=== PATIENT | male | born 1935 | race Caucasian/White ===

== ENCOUNTER 2018-06-27 19:34 | Inpatient (IN) | payer MEDICARE ==
[~2018-06-27] VITALS: Ht 167.6 cm; Wt 97.9 kg
[2018-06-27 19:39] VITALS: BP 122/68
[2018-06-27] MEDS ORDERED: FISH OIL 1,001000 M2 PO (19:46)
[2018-06-27] MEDS ORDERED: GLUCOPHAGE XR750 MG PO (19:47)
[2018-06-27] MEDS ORDERED: DIOVAN320 MG PO (19:47)
[2018-06-27] MEDS ORDERED: AMARYL4 MG PO (19:47)
[2018-06-27] MEDS ORDERED: PROSCAR 5MG TABL5 MG PO (19:48)
[2018-06-27] MEDS ORDERED: INVOKANA100 MG PO (19:48)
[2018-06-27] MEDS ORDERED: ASPIR 8181 MG PO (19:48)
[2018-06-27 20:05] LABS: HEMATOCRIT 45.5 % (42.0-52.0); HEMOGLOBIN 15.5 gm/dL (14.0-18.0); MCH 30.6 pg (26.0-34.0); MCHC 34.1 g/dL (28.0-37.0); MCV 89.6 fL (80.0-100.0); MPV 7.8 fl. (7.2-11.1); NUCLEATED RBCS 0 /100WBC; PLATELET COUNT* 234 thou/uL (150-400); RBC 5.08 mil/uL (4.50-6.00); RDW-CV 14.1 % (10.5-14.5); WBC 17.5 thou/uL (4.0-11.0)
[2018-06-27 20:06] LABS: ANION GAP 13 mmol/L (7-16); BUN 18 mg/dL (7-18); CALCIUM 9.7 mg/dL (8.5-10.1); CHLORIDE 95 mmol/L (98-107); CO2 28 mmol/L (21-32); CREATININE 1.4 mg/dL (0.6-1.3); GLUCOSE 195 mg/dL (70-99); POTASSIUM 3.8 mmol/L (3.5-5.1); SODIUM 136 mmol/L (136-145)
[2018-06-27 20:17] LABS: ALBUMIN 3.7 g/dL (3.4-5.0); ALKALINE PHOSPHATASE 68 U/L (46-116); LIPASE 137 U/L (73-393); NT-PRO BRAIN NAT PEPTIDE 327 pg/mL (<300); SGOT 18 U/L (15-37); SGPT 30 U/L (30-65); TOTAL BILIRUBIN 1.2 mg/dL (<0.1-1.0); TROPONIN-I LEVEL <0.06 ng/mL (<0.06)
[2018-06-27 20:28] LABS: ABSOLUTE LYMPHOCYTES 2.1 thou/uL (0.8-5.3); ABSOLUTE MONOCYTES 0.7 thou/uL (0.0-1.2); ABSOLUTE NEUTROPHILS 14.7 thou/uL (1.6-8.1); PLATELET ESTIMATE ADEQUATE
[2018-06-27 21:19] LABS: INFLUENZA A ANTIGEN None Detected (None Detect); INFLUENZA B ANTIGEN None Detected (None Detect)
[2018-06-27 22:21] LABS: URINE BILIRUBIN NEGATIVE (Negative); URINE BLOOD NEGATIVE (Negative); URINE CLARITY CLEAR; URINE COLOR YELLOW; URINE GLUCOSE-RANDOM 3+ (Negative); URINE KETONES 2+ (Negative); URINE LEUKOCYTES-REFLEX NEGATIVE (Negative); URINE NITRITE-REFLEX NEGATIVE (Negative); URINE PROTEIN TRACE (Negative); URINE SPECIFIC GRAVITY <= 1.005 (1.005-1.030); URINE UROBILINOGEN 0.2 E.U./dl (0.2-1.0)
[2018-06-27 22:56] VITALS: BP 146/66
[2018-06-27 23:27] VITALS: BP 147/50
[2018-06-28 03:53] LABS: ABSOLUTE LYMPHOCYTES 1.3 thou/uL (0.8-5.3); ABSOLUTE MONOCYTES 1.6 thou/uL (0.0-1.2); ABSOLUTE NEUTROPHILS 11.7 thou/uL (1.6-8.1); BASOPHILS 0.2 %; HEMATOCRIT 40.3 % (42.0-52.0); LYMPHOCYTES 8.8 %; MCH 31.2 pg (26.0-34.0); MCHC 34.7 g/dL (28.0-37.0); MCV 89.9 fL (80.0-100.0); MONOCYTES 10.8 %; MPV 7.6 fl. (7.2-11.1); NUCLEATED RBCS 0 /100WBC; PLATELET COUNT* 187 thou/uL (150-400); POLYS 80.2 %; RBC 4.49 mil/uL (4.50-6.00); WBC 14.6 thou/uL (4.0-11.0)
[2018-06-28 04:16] LABS: CALCIUM 8.9 mg/dL (8.5-10.1); CREATININE 1.1 mg/dL (0.6-1.3); DIRECT BILIRUBIN 0.3 mg/dL (<0.1-0.3); POTASSIUM 3.4 mmol/L (3.5-5.1); TOTAL BILIRUBIN 1.2 mg/dL (<0.1-1.0); TOTAL PROTEIN 6.8 g/dL (6.4-8.2)
--- NOTE | 2018-06-28 05:30 | NUR ---
PATIENT ARRIVED TO UNIT AT APPROX 2300. ALERT AND ORIENTED X4. SOME CONFUSION OBSERVED DURING ADMISSION QUESTIONS. PATEINTS SON ANSWERED ADMISSION QUESTIONS AND REVIEWED MEDICATIONS WITH NURSE. NO COMPLAINTS OF PAIN, NAUSEA, OR SOA. VSS ON ROOM AIR. FLUIDS INFUSED ORDERED. PATIENT RESTING COMFORTABLY IN BED THROUGHOUT THE NIGHT. FALL PRECAUTIONS IN PLACE. CALL LIGHT WITHIN REACH. NURSING WILL CONTINUE TO MONITOR.
[2018-06-28 08:15] VITALS: BP 132/64
--- NOTE | 2018-06-28 12:31 | EKG ---
[place] [address] ELECTROCARDIOGRAM REPORT Name: NIKKI DUNHAM Room: [address] ADM IN M.R.#: [id number] Admission: 06/27/18 Attend Phys: Lacy Purvis Discharge: Date of : 31 Report #: [id number] THIS REPORT FOR: //name// [facility] ED Test Date: 2018-06-27 Test Time: 19:50:16 Pat Name: NIKKI DUNHAM Department: Room: [facility] Gender: Shank Archer: Joe DELAROSA : 1935 Requested By: Dandre Moore Order Number: [id number] MD: Freeman Marina Measurements Intervals [place] Rate: 106 P: 31 [place]: 158 QRS: -29 QRSD: 102 T: 28 QT: 332 QTc: 441 Interpretive Statements Sinus tachycardia Inferior infarct, old Anterior infarct, old, possible Lateral leads are also involved No previous ECG available for comparison Electronically Signed On 06-28-2018 12:31:09 WHITEWASHER by Freeman Marina [email or web address] <ELECTRONICALLY SIGNED> By: Freeman Marina MD, FACC 06/28/18 1231 1950 1950 Freeman Marina MD, FACC /EPI
[2018-06-28 16:05] VITALS: BP 152/73
--- NOTE | 2018-06-28 16:38 | NUR ---
PATIENT REMAINS ALERT AND ORIENTED. DENIES PAIN. TOLERATING LIQUIDS. UP WITH ASSIST OF 1, AND GAITBELT. VOIDING PER URINAL OR TOILET. ALERT AND ORIENTED X3 BUT FORGETFUL THIS EVENING. BED/CHAIR ALARM IN USE. SON VISISTED THIS AM. IVF INFUSING ORDERED. CALL LIGHT WITHIN REACH. WILL CONTINUE TO MONITOR.
[2018-06-28 20:10] VITALS: BP 145/67
[2018-06-29 04:23] LABS: ABSOLUTE EOSINOPHILS 0.1 thou/uL (0.0-0.7); ABSOLUTE LYMPHOCYTES 1.6 thou/uL (0.8-5.3); ABSOLUTE MONOCYTES 1.3 thou/uL (0.0-1.2); BASOPHILS 0.3 %; EOSINOPHILS 0.5 %; HEMATOCRIT 36.9 % (42.0-52.0); HEMOGLOBIN 12.7 gm/dL (14.0-18.0); LYMPHOCYTES 13.3 %; MCH 31.3 pg (26.0-34.0); MCHC 34.4 g/dL (28.0-37.0); MCV 90.9 fL (80.0-100.0); MONOCYTES 10.8 %; MPV 7.6 fl. (7.2-11.1); NUCLEATED RBCS 0 /100WBC; PLATELET COUNT* 156 thou/uL (150-400); POLYS 75.1 %; RBC 4.06 mil/uL (4.50-6.00); RDW-CV 14.3 % (10.5-14.5); WBC 11.9 thou/uL (4.0-11.0)
[2018-06-29 04:43] LABS: ALBUMIN 2.5 g/dL (3.4-5.0); CALCIUM 8.3 mg/dL (8.5-10.1); CREATININE 1.1 mg/dL (0.6-1.3); POTASSIUM 3.9 mmol/L (3.5-5.1); TOTAL BILIRUBIN 0.8 mg/dL (<0.1-1.0); TOTAL PROTEIN 6.1 g/dL (6.4-8.2)
--- NOTE | 2018-06-29 05:06 | NUR ---
ASSUMED CARE OF PATIENT AT APPROX 1930. ALERT AND ORIENTED BUT SOMETIMES FORGETFUL. ASSESSMENT COMPLETED AND CHARTED. VSS ON ROOM AIR. NO COMPLAINTS OF PAIN, NAUSEA, OR SOA. UP WITH SBA TO THE BATHROOM. OBSERVED SLEEPING COMFORTABLY ON BED UPON HOURLY ROUNDS. CALL LIGHT WITHIN REACH AND USES APPROPRIATELY. FALL PRECAUTIONS IN PLACER. NURSING WILL CONTINUE TO MONITOR.
[2018-06-29 08:08] VITALS: BP 136/69
--- NOTE | 2018-06-29 15:33 | NUR ---
SPOKE TO THE PATIENT AND HIS SON TO DISCUSS HIS HOME SITUATION, DISCHARGE PLANNING AND TO INFORM OF THE ROLE OF CM. PATIENT RESIDES AT HOME WITH HIS SON IN THE BASEMENT/LOWER LEVEL OF THE HOME. IT IS SETUP LIKE AN APARTMENT AND EVERYTHING HE NEEDS IS THERE. PATIENT'S SON ALSO ASSIST THE PATIENT WITH PREPARING MEALS (USUALLY DINNER), AND HE USUSALLY PREPARES HIS OWN BREAKFAST AND LUNCH. PATIENT'S SON IS SUPPORTIVE AND INVOLVED IN HIS POC AND HE INFORMS THAT HE PLANS TO TAKE A FEW DAYS OFF FROM WORK TO ASSIST HIS FATHER AT D/C. PATIENT USES 0 DME, BUT HIS SON HAD RECENTLY PURCHASED HIM A WALKER TO USE AT HOME IF NEEDED. PATIENT HAS NO HX OF HH OR SNF, AND PLANS TO RETURN HOME AT D/C. PATIENT'S SON DOES NOT ANTICIPATE ANY DISCHARE PLANNING NEEDS. CM WILL REMAIN AVAILABLE TO ASSIST AND FOLLOW NEEDED.
--- NOTE | 2018-06-29 16:22 | NUR ---
PATIENT REMAINS ALERT AND ORIENTED X3. FORGETFUL AT TIMES. DENIES NEED FOR PAIN OR NAUSEA MEDS. STATES HIS STOMACH BOTHERS HIM SOMETIMES. TOLERATING CLEAR LIQUIDS. WILL BE NPO AFTER MIDNIGHT FOR CHOLECYSTECTOMY TOMORROW. SON UPDATED ON SURGERY TIME. IVF INFUSING ORDERED. UP WITH STAND BY ASSIST. BED/CHAIR ALARM IN USE. VOIDING PER TOILET. BM 06/28/18. CALL LIGHT WITHIN REACH. WILL CONTINUE TO MONITOR.
[2018-06-29 16:32] VITALS: BP 133/58
[2018-06-29 19:20] VITALS: BP 150/68
--- NOTE | 2018-06-30 06:19 | NUR ---
PT HAS SLEPT ON AND OFF THIS SHIFT. PT HAS HAD NO C/O NAUSEA OR PAIN T/O THIS SHIFT. NO NEW CONCERNS AT THIS TIME.
[2018-06-30 08:36] VITALS: BP 146/62
[2018-06-30 09:28] VITALS: BP 150/68
[2018-06-30 14:15] VITALS: BP 155/64
--- NOTE | 2018-06-30 14:31 | NUR ---
PATIENT RETURNED FROM SURGERY AT THIS TIME. ALERT AND ORIENTED. JUST RECEIVED PAIN MEDS IN PACU. O2 2L. CAPNO IN PLACE. LAP SITES C/D/I WITH TEGADERM AND GAUZE IN PLACE. HOLDEN RUQ. SANGUINEOUS DRAINAGE. WATER PROVIDED. IVF AND IV ABX INFUSING ORDERED. SCD'S IN PLACE. BED ALARM SET. SON AT BEDSIDE-WILL BRING CPAP TONIGHT. CALL LIGHT WITHIN REACH. WILL CONTINUE TO MONITOR.
--- NOTE | 2018-06-30 14:53 | OP ---
[address] [address] OPERATIVE REPORT Name: NIKKI DUNHAM Room: [address] IN M.R.#: [id number] Admission: 06/27/18 Attend Phys: Lacy Purvis Discharge: Date of : 31 Report #: [id number] THIS REPORT FOR: //name// CC: Eileen Arteaga DO [facility] physician/PCP Neville Calvo PREOPERATIVE DIAGNOSES: Acute cholecystitis, cholelithiasis. POSTOPERATIVE DIAGNOSES: Acute gangrenous cholecystitis, cholelithiasis. SURGEON: Eileen Arteaga DO. CO-SURGEON: Jama Goodrich DO, PGY-2. DISTRIBUTION DRIVER: Maximo PGY-1. OPERATION PERFORMED: Laparoscopic cholecystectomy. ANESTHESIA: General and local. ESTIMATED BLOOD LOSS: 100 mL. SPECIMENS REMOVED: Gallbladder. DRAINS: A 15-Vietnamese HOLDEN drain. COMPLICATIONS: None. HISTORY OF PRESENT ILLNESS: The patient is a pleasant 82-year-old male who presented with right upper quadrant abdominal pain. Ultrasound did reveal evidence of cholecystitis with cholelithiasis. It was discussed that laparoscopic cholecystectomy would be treatment of choice. Risks and complications were discussed include bleeding, infection, injury to surrounding structures, possible open procedure, possible drain placement and risk of anesthesia. He acknowledged understanding and agreed to proceed with surgery. DESCRIPTION OF PROCEDURE: After consent was obtained, the patient was taken to the operating room and placed in supine position. SCDs applied to bilateral lower extremities. Safety belt placed across the patient's waist. Two grams of Ancef given for surgical prophylaxis. General anesthesia was administered without any complication. The patient was intubated and then prepped and draped in a standard sterile fashion. Timeout was performed to confirm the patient and procedure. An 11 blade scalpel was used to make a vertical incision just above the umbilicus. Electrocautery was used for hemostasis. S retractors used to dissect down to the level of the fascia. Fascia was grasped between 2 Kochers and elevated, scored with electrocautery and hemostat [place] [id number] OPERATIVE REPORT Name: NIKKI DUNHAM Room: [address] IN [facility].#: [id number] Admission: 06/27/18 Attend Phys: Lacy Purvis Discharge: Date of : 31 Report #: [id number] peritoneum. Finger sweep was performed to ensure no intra-abdominal adhesions. Two stitches of 0 Vicryl were placed on either side of the fascia. A 10 mm Jorge trocar was inserted in the abdomen and abdomen was insufflated. Camera was inserted and intra-abdominal contents were inspected. The omentum and colon could be seen draped over the liver. A second 11 mm trocar was placed in the subxiphoid region under direct visualization. Two more trocars were placed in the right upper quadrant, these two were 5 mm trocars, under direct visualization. The omentum and transverse colon were pulled down caudad. The gallbladder could be seen under the edge of the liver. There was evidence of acute cholecystitis. There was a significant amount of omentum adhered to the gallbladder. This was sucked away with blunt dissection and electrocautery. Once the gallbladder was cleared of all adhesions, attention was turned to dissecting all the ducts using suction christmas tree farm manager. A blunt dissection was used to try to isolate the cystic duct. There was a structure medial and lateral to the cystic duct, it was unsure which one was the artery. These were both dissected free using [place] dissector and the duct was isolated secondary to being a gangrenous state of the gallbladder. The cystic duct did tear; however, the both proximal and distal ends were easily isolated and clipped. The two structures lateral and medial to the cystic duct were both clipped and cut. There was no evidence of bleeding from these structures. Attention was then turned to removing the gallbladder from the edge of the liver. Electrocautery was used to dissect the gallbladder off. Once it was freed from the liver bed, it was placed in an EndoCatch bag. Of note, the hole was made into the gallbladder and there was some spillage of stones. These stones were removed from the abdomen as best as possible and the gallbladder fossa was irrigated and suctioned of all fluid. Surgicel was placed onto the liver bed to ensure hemostasis. All excess stones and the gallbladder were placed in laparoscopic EndoCatch bag. Trocars were removed under direct visualization. Once hemostasis was ensured, insufflation was let down. The gallbladder and its contents were then removed from the supraumbilical port site. The fascia was closed with one stitch of 0 Vicryl in a [id number] fashion. All skin incisions were closed with 4-0 Monocryl. All counts were correct at the end of the case. The patient was awoken from general anesthesia and transferred to PACU in stable condition. Of note, a 15-Vietnamese HOLDEN drain was placed in the right upper quadrant just under the bed of the liver secondary to the gangrenous state of the gallbladder. <ELECTRONICALLY SIGNED> By: Jama Goodrich DO 06/30/18 1453 1246 1310DO andres Haynes
--- NOTE | 2018-06-30 15:07 | EKG ---
[place] [address] ELECTROCARDIOGRAM REPORT Name: NIKKI DUNHAM Room: [address] ADM IN M.R.#: [id number] Admission: 06/27/18 Attend Phys: Lacy Purvis Discharge: Date of : 31 Report #: [id number] THIS REPORT FOR: //name// [facility] Test Date: 2018-06-30 Test Time: 08:29:32 Pat Name: NIKKI DUNHAM Department: Room: [address] Gender: M Engine Buildup Mechanic: GARRETT RODRIGUEZ : 1935 Requested By: Ariana Otero Order Number: [id number] Colin MD: Abdoulaye Hernandez Measurements Intervals [place] Rate: 68 P: 49 [place]: 165 QRS: 4 QRSD: 101 T: 36 QT: 403 QTc: 429 Interpretive Statements Sinus rhythm Inferior infarct, old Compared to ECG 06/27/2018 19:50:16 Sinus tachycardia no longer present Myocardial infarct finding still present Electronically Signed On 06-30-2018 15:07:40 JUNIOR RECRUITER by Abdoulaye Hernandez [email or web address] <ELECTRONICALLY SIGNED> By: Abdoulaye Hernandez MD, [facility] 06/30/18 1507 0829 0829 Abdoulaye Hernandez MD, [facility] /EPI
[2018-06-30 15:45] VITALS: BP 144/76
--- NOTE | 2018-06-30 16:13 | NUR ---
PATIENT SLEEPING THIS AFTERNOON. TOLERATED SMALL AMOUNT OF LIQUIDS. ZOSYN STARTED. SCD'S IN PLACE. DRESSINGS C/D/I. BED ALARM SET. CALL LIGHT WITHIN REACH. WILL CONTINUE TO MONITOR.
--- NOTE | 2018-06-30 17:20 | NUR ---
PATIENT TOLERATED CLEAR LIQUIDS. REQUESTED CHICKEN NOODLE SOUP AND PUDDING-TOLERATED WELL. HYDROCODONE FOR PAIN.
[2018-06-30 20:00] VITALS: BP 119/59
[2018-07-01 00:32] VITALS: BP 135/93
[2018-07-01 04:29] VITALS: BP 154/78
--- NOTE | 2018-07-01 05:12 | NUR ---
ASSUMED CARE OF PT AT 1900 PT ALERT AND ORIENTED X4 VS AND ASSESSMENT STABLE. LAP SITES CDI, HOLDEN CARISSA HAD A SM AMOUNT OF SEROSANGINOUS DRAINAGE. PT HAD PAIN MEDS ONCE THEN SLEPT THROUGH THE NIGHT. WILL CONTINUE PLAN OF CARE.
[2018-07-01 07:45] VITALS: BP 144/68
[2018-07-01 08:25] LABS: HEMATOCRIT 37.8 % (42.0-52.0); HEMOGLOBIN 12.8 gm/dL (14.0-18.0); MCH 31.4 pg (26.0-34.0); MCHC 33.8 g/dL (28.0-37.0); MCV 92.7 fL (80.0-100.0); MPV 7.4 fl. (7.2-11.1); RBC 4.08 mil/uL (4.50-6.00); RDW-CV 14.4 % (10.5-14.5)
[2018-07-01 08:34] LABS: CALCIUM 7.9 mg/dL (8.5-10.1); CREATININE 1.1 mg/dL (0.6-1.3)
--- NOTE | 2018-07-01 12:40 | NUR ---
ACADEMIC PHYSICIAN SPOKE TO THE PATIENT AND HIS SON TO DISCUSS DISCHARGE PLANNING NEEDS AND HH AT D/C. PATIENT'S SON INFORMS THAT HE WOULD LIKE HH WITH [facility]. D/C EDUCATIONAL TECHNICIAN INFORMED [facility] OF THE REFERRAL, AND POSSIBLE D/C TOMORROW. [facility] HAS ACCEPTED THE PATIENT. D/C EDUCATIONAL TECHNICIAN WILL FAX D/C ORDERS WHEN AVAILABLE. CM WILL REMAIN AVIALABLE TO ASSIST AND FOLLOW NEEDED.
--- NOTE | 2018-07-01 13:38 | 2DMMODE ---
[place] [address] 2 D/M-MODE ECHOCARDIOGRAM Name: NIKKI DUNHAM Room: [address] IN [facility]#: [id number] Admission: 06/27/18 Attend Phys: Neville Calvo Discharge: Date of : 31 Date of Service: 07/01/18 1338 Report #: [id number] THIS REPORT FOR: //name// APPROVED REPORT Study performed: 07/01/2018 11:38:03 EXAM: Comprehensive 2D, Doppler, and color-flow Echocardiogram Patient Location: In-Patient Room #: [facility] Status: routine BSA: 2.06 HR: 79 bpm BP: 144/68 mmHg Rhythm: NSR Other Information Study Quality: Good Indications Abnormal ECG 2D Dimensions IVSd: 9.71 (7-11mm) LVOT Diam: 20.05 (18-24mm) LVDd: 47.20 mm PWd: 8.72 (7-11mm) Ascending Ao: 30.43 (22-36mm) LVDs: 23.22 (25-40mm) Aortic Root: 31.95 mm Volumes Left Atrial Volume (Systole) LA ESV Index: 20.70 mL/m2 Aortic Valve AoV Peak Davon.: 1.52 m/s AO Peak Gr.: 9.26 mmHg LVOT Max P.46 mmHg AO Mean Gr.: 4.96 mmHg LVOT Mean P.93 mmHg LVOT Max V: 1.45 m/s AO V2 VTI: 26.54 cm LVOT Mean V: 0.91 m/s SCOTT (VTI): 3.31 cm2 LVOT V1 VTI: 27.82 cm Mitral Valve E/A Ratio: 0.70 MV Decel. Time: 329.44 ms MV E Max Davon.: 0.82 m/s MV PHT: 95[place]54 [place] [address] 2 D/M-MODE ECHOCARDIOGRAM Name: NIKKI DUNHAM Room: [address] IN [facility].#: [id number] Admission: 06/27/18 Attend Phys: Neville Calvo Discharge: Date of : 31 Date of Service: 07/01/18 1338 Report #: [id number] MVA (PHT): 2.30 cm2 TDI E/Lateral E': 7.45 E/Medial E': 7.45 Medial E' Davon.: 0.11 m/s Lateral E' Davon.: 0.11 m/s Pulmonary Valve PV Peak Davon.: 1.16 m/s PV Peak Gr.: 5.35 mmHg Tricuspid Valve RAP Estimate: 5.00 mmHg TR Peak Gr.: 59.92 mmHg RVSP: 64.00 mmHg PA Pressure: 64.00 mmHg Left Ventricle The left ventricle is normal size. There is normal LV segmental wall motion. There is normal left ventricular wall thickness. Left ventricular systolic function is normal. The left ventricular ejection fraction is within the normal range. LVEF is 60-65%. Grade I - abnormal relaxation pattern. Right Ventricle The right ventricle is normal size. The right ventricular systolic function is normal. Atria The left atrium size is normal. The right atrium size is normal. Aortic Valve The aortic valve is normal in structure. No aortic regurgitation is present. There is no aortic valvular stenosis. Mitral Valve The mitral valve is normal in structure. Mild mitral regurgitation. No evidence of mitral valve stenosis. Tricuspid Valve The tricuspid valve is normal in structure. Mild tricuspid regurgitation. Mod[place] [address] 2 D/M-MODE ECHOCARDIOGRAM Name: NIKKI DUNHAM Room: [address] IN [facility]#: [id number] Admission: 06/27/18 Attend Phys: Neville Calvo Discharge: Date of : 31 Date of Service: 07/01/18 1338 Report #: [id number] Pulmonic Valve The pulmonary valve is normal in structure. There is no pulmonic valvular regurgitation. Great Vessels The aortic root is normal in size. IVC is not visualized. Pericardium There is no pericardial effusion. <Conclusion> The left ventricle is normal size. There is normal left ventricular wall thickness. Left ventricular systolic function is normal. The left ventricular ejection fraction is within the normal range. LVEF is 60-65%. Grade I - abnormal relaxation pattern. The right ventricle is normal size. The left atrium size is normal. The aortic valve is normal in structure. The mitral valve is normal in structure. Mild mitral regurgitation. The tricuspid valve is normal in structure. Mild tricuspid regurgitation. Moderate pulmonary hypertension. There is no pericardial effusion. There is normal LV segmental wall motion. <ELECTRONICALLY SIGNED> By: Mateo Lentz MD, FACC 07/01/18 1338 1338 1338 Mateo Lentz MD, FACC /INF
[2018-07-01 15:48] VITALS: BP 147/57
--- NOTE | 2018-07-01 16:16 | NUR ---
PATIENT REMAINS ALERT AND ORIENTED. PAIN CONTROLLED. TOLERATING FULL LIQUIDS. ADVANCING DIET SLOWLY, NO BM, VERY LITTLE FLATUS TODAY. VOIDING LARGE AMOUNTS PER URINAL. AMBULATED X3 IN HALLWAY. RA SAT 96%. INCENTIVE SPIROMETER ORDERED. LAP SITES C/D/I. HOLDEN RIGHT QUADRANT-SANGUINEOUS DRAINAGE. SCD'S WHILE IN BED. UP TO CHAIR FOR MEALS.CPAP AT HS. PATIENT DID HAVE TEMP OF 101 THIS EVENING. NOTIFIED. CHEST XRAY, AND BLOOD CULTURES ORDERED. BED/CHAIR ALARM IN USE. CALL LIGHT WITHIN REACH. WILL CONTINUE TO MONITOR.
--- NOTE | 2018-07-01 16:54 | NUR ---
NOTIFIED GENERAL SURGERY OF TEMP 101. NO NEW ORDERS AT THIS TIME.
[2018-07-01 20:00] VITALS: BP 147/64
[2018-07-02 00:29] VITALS: BP 154/68
[2018-07-02 04:19] VITALS: BP 133/77
--- NOTE | 2018-07-02 04:59 | NUR ---
ASSUMED CARE OF PT AT 1900 PT ALERT AND ORIENTED X4 VS AND ASSESSMENT STABLE. PT WAS FEBRILE THE PREVIOUS SHIFT BUT AFEBRILE OVERNIGHT ENCOURAGED USE OF IS. PT DENIED PAIN AND DECLINED PAIN MEDS. PT SLEPT THROUGH THEN NIGHT. WILL CONTINUE PLAN OF CARE.
[2018-07-02 05:04] LABS: HEMATOCRIT 32.1 % (42.0-52.0); HEMOGLOBIN 11.1 gm/dL (14.0-18.0); MCH 31.2 pg (26.0-34.0); MCHC 34.4 g/dL (28.0-37.0); MCV 90.8 fL (80.0-100.0); MPV 6.5 fl. (7.2-11.1); RBC 3.54 mil/uL (4.50-6.00); RDW-CV 14.1 % (10.5-14.5); WBC 8.9 thou/uL (4.0-11.0)
[2018-07-02 05:14] LABS: CALCIUM 8.2 mg/dL (8.5-10.1); POTASSIUM 3.3 mmol/L (3.5-5.1)
[2018-07-02 08:30] VITALS: BP 123/55
[2018-07-02] MEDS ORDERED: COLACE 100 MG100 MG PO (12:19)
[2018-07-02] MEDS ORDERED: HYDROCODON-ACE1 EAC7 PO (12:19)
[2018-07-02 13:23] VITALS: BP 123/55
[2018-07-02 13:59] VITALS: BP 123/55
[2018-07-02 14:44] VITALS: BP 123/55
--- NOTE | 2018-07-02 14:45 | NUR ---
PT GIVEN DISCHARGE INFORMATION AND CARE NOTES. IV REMOVED EARLIER IN SHIFT BY PATIENT. PT BELONGINGS GATHERED. PT LEFT TO HOME WITH HOME HEALTH. PT HAD BOWEL MOVEMENT PRIOR TO LEAVING. TOLERATED REGULAR DIET. FALL RISK PRECAUTIONS IN PLACE. HOURLY ROUNDING COMPLETED. PT LEFT VIA WHEELCHAIR WITH NURSING STAFF TO CAR WITH SON.
--- NOTE | 2018-07-03 13:08 | PATH ---
[address] [address] PATHOLOGY RPT PROCEDURE Name: NIKKI DUNHAM Room: [address] IN M.R.#: [id number] Admission: 06/27/18 Date of : 31 Discharge: 07/02/18 Report #: [id number] Path Case #: [id number] [facility] Accession Number: [id number] . 01 Material submitted: . GALLBLADDER . 01 Clinical history: . Pre-op diagnosis: Cholecystitis Post-op diagnosis: Gangrenous cholecystitis, cholelithiasis . 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 . (ELADIA:isaiah; 07/02/2018) QLM/07/02/2018 . 02 Electronically signed: . Yann Otoole MD, Pathologist NPI- [id number] . 01 Gross description: . The specimen is received in formalin, labeled "Nikki Dunham, gallbladder". Received is a previously opened gallbladder measuring 8.3 x 4.5 x 2.2 cm in greatest dimensions displaying dusky pink-rouse serosal surfaces. Opening the gallbladder reveals a light gallo, slightly velvety to predominantly shaggy mucosa covered in a moderate amount of overlying pale gallo to light brown exudate. The gallbladder wall measures 0.1 cm in thickness. Calculi are present displaying a black and smooth appearance. Near the fundal aspect of the gallbladder, there is a slight amount of liver tissue present. Order Department Supervisor sections, including the proximal margin and liver tissue, are submitted in cassettes A1 and A2. (CAA; 07/01/2018) QAC/QAC . 02 Pathologist provided ICD-10: K80.12 . 02 CPT . 628000 Specimen Comment: A courtesy copy of this report has been sent to Specimen Comment: [phone], . Specimen Comment: Report sent to / DR BARTHOLOMEW Specimen Comment: A duplicate report has been generated due [place] [address] PATHOLOGY RPT PROCEDURE Name: NIKKI DUNHAM Room: [address] IN M.R.#: [id number] Admission: 06/27/18 Date of : 31 Discharge: 07/02/18 Report #: [id number] Path Case #: [id number] Performed at: 01 [facility] [place] [address], [place], [place] [id number] MD Ancelmo Wan MD Phone: [phone] Performed at: [address] [facility] [place] [address] [place] [id number] MD Yann Otoole MD Phone: [phone]
== END 2018-07-02 14:46 | disposition home health service (06) | DRG 417 ==
LOC: M.ERS 19:34 → M.TBA-ER 22:29 → M.ORTHSURG 22:29
PROVIDERS: Internal Medicine; Nurse Practitioner Family; Surgery; ADMIT Internal Medicine
PROC: 0FT44ZZ Resection of Gallbladder, Percutaneous Endoscopic Approach (ICD-10-PCS; principal; 2018-06-27)
PROC: 5A09357 Assistance with Respiratory Ventilation, Less than 24 Consecutive Hours, Continuous Positive Airway Pressure (ICD-10-PCS; 2018-07-01)
DX: K80.00 Calculus of gallbladder with acute cholecystitis without obstruction (principal); R65.11 Systemic inflammatory response syndrome (SIRS) of non-infectious origin with acute organ dysfunction; N17.9 Acute kidney failure, unspecified; K82.A1 Gangrene of gallbladder in cholecystitis; N18.3 Chronic kidney disease, stage 3 (moderate); E11.22 Type 2 diabetes mellitus with diabetic chronic kidney disease; I12.9 Hypertensive chronic kidney disease with stage 1 through stage 4 chronic kidney disease, or unspecified chronic kidney disease; D72.829 Elevated white blood cell count, unspecified; E80.6 Other disorders of bilirubin metabolism; E87.6 Hypokalemia; G47.33 Obstructive sleep apnea (adult) (pediatric); Z86.73 Personal history of transient ischemic attack (TIA), and cerebral infarction without residual deficits; Z82.49 Family history of ischemic heart disease and other diseases of the circulatory system; Z79.82 Long term (current) use of aspirin; Z79.899 Other long term (current) drug therapy

== ENCOUNTER 2018-07-07 22:54 | Inpatient (IN) | payer MEDICARE ==
[~2018-07-07] VITALS: Ht 167.6 cm; Wt 98.9 kg
[~2018-07-07 22:54] MED LIST: AMARYL4 MG PO; ASPIR 8181 MG PO; COLACE 100 MG100 MG PO; DIOVAN320 MG PO; FISH OIL 1,001000 M2 PO; GLUCOPHAGE XR750 MG PO; HYDROCODON-ACE1 EAC7 PO; INVOKANA100 MG PO; PROSCAR 5MG TABL5 MG PO
[2018-07-07 23:05] VITALS: BP 134/68
[2018-07-07 23:35] LABS: URINE BILIRUBIN NEGATIVE (Negative); URINE BLOOD TRACE (Negative); URINE CLARITY CLEAR; URINE COLOR YELLOW; URINE GLUCOSE-RANDOM 3+ (Negative); URINE KETONES 1+ (Negative); URINE LEUKOCYTES-REFLEX NEGATIVE (Negative); URINE NITRITE-REFLEX NEGATIVE (Negative); URINE PROTEIN 2+ (Negative); URINE UROBILINOGEN 0.2 E.U./dl (0.2-1.0)
[2018-07-07 23:42] LABS: HEMATOCRIT 34.3 % (42.0-52.0); HEMOGLOBIN 11.3 gm/dL (14.0-18.0); MCH 29.6 pg (26.0-34.0); MCV 89.8 fL (80.0-100.0); MPV 6.6 fl. (7.2-11.1); NUCLEATED RBCS 0 /100WBC; PLATELET COUNT* 310 thou/uL (150-400); RBC 3.82 mil/uL (4.50-6.00); RDW-CV 14.2 % (10.5-14.5); WBC 12.1 thou/uL (4.0-11.0)
[2018-07-07 23:50] LABS: CREATININE 1.4 mg/dL (0.6-1.3); POTASSIUM 3.2 mmol/L (3.5-5.1)
[2018-07-07 23:53] LABS: PROTIME 10.5 Seconds (9.20-11.50)
[2018-07-08] VITALS (7 sets, daily range): BP systolic 102–139; BP diastolic 44–69
[2018-07-08 00:01] LABS: ALBUMIN 2.1 g/dL (3.4-5.0); TOTAL BILIRUBIN 0.5 mg/dL (<0.1-1.0); TOTAL PROTEIN 6.6 g/dL (6.4-8.2)
[2018-07-08 00:03] LABS: TROPONIN-I LEVEL 0.7 ng/mL (<0.06)
[2018-07-08 01:41] LABS: CASTS None Seen /LPF (None Seen); SQUAMOUS 0-3 Few /LPF (0-3); URINE RBC 0-2 Rare /HPF (0-2); URINE WBC-REFLEX 0-5 Rare /HPF (0-5)
[2018-07-08 01:42] LABS: BACTERIA-REFLEX 1-9 Few /HPF (None Seen); CRYSTALS None Seen /LPF (None Seen)
[2018-07-08 02:45] LABS: ABSOLUTE EOSINOPHILS 0.2 thou/uL (0.0-0.7); ABSOLUTE LYMPHOCYTES 0.1 thou/uL (0.8-5.3); ABSOLUTE NEUTROPHILS 11.7 thou/uL (1.6-8.1); PLATELET ESTIMATE ADEQUATE
[2018-07-08 06:09] LABS: HEMATOCRIT 31.3 % (42.0-52.0); HEMOGLOBIN 10.2 gm/dL (14.0-18.0); MCH 29.5 pg (26.0-34.0); MCHC 32.6 g/dL (28.0-37.0); MCV 90.5 fL (80.0-100.0); MPV 6.9 fl. (7.2-11.1); RBC 3.46 mil/uL (4.50-6.00); RDW-CV 14.7 % (10.5-14.5); WBC 12.3 thou/uL (4.0-11.0)
[2018-07-08 06:49] LABS: ALBUMIN 1.9 g/dL (3.4-5.0); CALCIUM 8.2 mg/dL (8.5-10.1); CREATININE 1.1 mg/dL (0.6-1.3); POTASSIUM 3.2 mmol/L (3.5-5.1); TOTAL BILIRUBIN 0.3 mg/dL (<0.1-1.0); TOTAL PROTEIN 5.7 g/dL (6.4-8.2)
--- NOTE | 2018-07-08 07:52 | NUR ---
Pt admitted from ER at 0400 07/08/18. A/O x 4. O2 2L NC. VSS. Afebrile. SR. Up with assist x 1. IVF infusing. NPO at this time. Denies pain or any other discomfort at this time. Bed alarm on. Fall precautions maintained. Call light within reach. Shift change complete with incoming day-shift RN.
--- NOTE | 2018-07-08 08:51 | NUR ---
ASSUMED CARE OF PT THIS AM AROUND 07- [facility] MONITOR IN PLACE ORDERED, TRACING SB THIS AM- UPON ASSESSMENT PT NOTED TO BE RESTING IN BED, WATCHING TV- PT A&O X4- CONTINENT OF BOWEL AND BLADDER- LIMITED ASSIST WITH TRANSFERS- LCTA, RESP EVEN AND UN-LABORED- VSS, O2 SAT 94% ON 2L VIA NC- ABD ROUND/DISTENED, BS X 4 QUADS- LAST BM REPORTED X2 DAYS AGO- CURRENLTY NPO PENDING SURGERY PLANS- BACK REDENED RASH THAT WRAPS AROUND RIGHT ABD NOTED, AROUND UMBILICUS WELL- ABD INCISSION NOTED, HOLDEN DRAIN TO RIGHT MID ABD IN PLACE, WITH MINIMAL DONNA DRAINAGE NOTED- IV NOTED TO RIGHT AC INTACT, IVF INFUSSING PRESCIBED- BS MONITORED ORDERED- CALL LIGHT AND PERSONAL BELONGINGS WITH IN REACH- HOURLY ROUNDS IN PLACE R/T SAFETY/NEEDS- ALL NEEDS MET AT THIS TIME-WCTM
--- NOTE | 2018-07-08 10:50 | EKG ---
[place] [address] ELECTROCARDIOGRAM REPORT Name: NIKKI DUNHAM Room: [address] ADM IN ..#: [id number] Admission: 07/08/18 Attend Phys: Ariana Otero MD Discharge: Date of : 31 Report #: [id number] THIS REPORT FOR: //name// [facility] ED Test Date: 2018-07-07 Test Time: 23:15:47 Pat Name: NIKKI DUNHAM Department: Room: [facility] Gender: M Alteration Tailor: AP : 1935 Requested By: Rody Cooper Order Number: [id number] MD: Abdoulaye Hernandez Measurements Intervals [place] Rate: 107 P: 24 AR: 139 QRS: -39 QRSD: 139 T: 98 QT: 348 QTc: 465 Interpretive Statements Sinus tachycardia Left bundle branch block Baseline wander in lead(s) II,aVF,V1,V2,V3,V4,V5,V6 Compared to ECG 06/30/2018 08:29:32 Left bundle-branch block now present Sinus rhythm no longer present Electronically Signed On 07-08-2018 10:50:21 BOARDING ROOM FIXER by Abdoulaye Hernandez [email or web address] <ELECTRONICALLY SIGNED> By: Abdoulaye Hernandez MD, FACC 07/08/18 1050 2315 2315 Abdoulaye Hernandez MD, [facility] /EPI
--- NOTE | 2018-07-08 10:50 | EKG ---
[place] [address] ELECTROCARDIOGRAM REPORT Name: NIKKI DUNHAM Room: [address] ADM IN [facility].#: [id number] Admission: 07/08/18 Attend Phys: Ariana Otero MD Discharge: Date of : 31 Report #: [id number] THIS REPORT FOR: //name// [facility] ED Test Date: 2018-07-08 Test Time: 00:30:58 Pat Name: NIKKI DUNHAM Department: Room: [facility] Gender: M Casserole Preparer: AP : 1935 Requested By: Rody Cooper Order Number: [id number] MD: Abdoulaye Hernandez Measurements Intervals [place] Rate: 91 P: 34 WI: 160 QRS: -11 QRSD: 103 T: 14 QT: 357 QTc: 440 Interpretive Statements Sinus rhythm Consider anterior infarct Electronically Signed On 07-08-2018 10:50:45 CHLORINATOR by Abdoulaye Hernandez [email or web address] <ELECTRONICALLY SIGNED> By: Abdoulaye Hernandez MD, [facility] 07/08/18 1050 0030 0030 Abdoulaye Hernandez MD, FACC /EPI
--- NOTE | 2018-07-08 11:32 | NUR ---
SPOKE TO THE PATIENT AND HIS SON TO DISCUS HIS HOME SITUATON, DISCHARGE PLANNING, AND TO INFORM OF THE ROLE OF CM. PATIENT KNOWN TO THIS CM FROM PREVIOUS ADMISSION. PATIENT RESIDES AT HOME WITH SON IN A BASEMENT APARTMENT. PATIENT'S SON SUPPORTIVE AND INVOLVED IN HIS POC. PATIENT ALERT AND ORIENTED. PATIENT NORMALLY ABLE TO DO OWN ADL'S AT HOME, AND HIS SON ASSIST WITH PREPARING MEALS, AND IS WILLING TO ASSIST WITH CARES IF NEEDED. PATIENT IS CURRENTLY ON-SERVICE WITH [facility]. PATIENT PLANS TO RETURN HOME WITH SON AT D/C AND WOULD LIKE TO CONTINUE SERVICE WITH [facility] AT D/C. D/C PRE PRESS OPERATOR SPOKE TO PARRIS WITH [facility] TO INFORM OF THE PATIENT'S ADMISSION AND SHE INFORMS THAT ORDERS TO RESUME CARE WILL NEED TO BE FAXED AT D/C. CM WILL REMAIN AVAILABLE TO ASSIST AND FOLLOW NEEDED.
--- NOTE | 2018-07-08 16:45 | 2DMMODE ---
[facility] [address] [place] [address] 2 D/M-MODE ECHOCARDIOGRAM Name: NIKKI DUNHAM Room: [address] IN [facility]#: [id number] Admission: 07/08/18 Attend Phys: Ariana Otero, Discharge: Date of : 31 Date of Service: 07/08/18 1645 Report #: [id number] THIS REPORT FOR: //name// APPROVED REPORT Study performed: 07/08/2018 14:58:55 EXAM: Limited 2D Echocardiogram Patient Location: In-Patient Room #: 200 Status: routine BSA: 2.04 HR: 68 bpm Rhythm: NSR Other Information Study Quality: Good Indications Elevated Troponin Left Ventricle The left ventricle is normal size. There is normal LV segmental wall motion. There is normal left ventricular wall thickness. Left ventricular systolic function is borderline. LVEF is 50-55%. Right Ventricle The right ventricle is normal size. The right ventricular systolic function is normal. Atria The left atrium size is normal. The right atrium size is normal. Aortic Valve The aortic valve is normal in structure. Mitral Valve The mitral valve is normal in structure. Tricuspid Valve The tricuspid valve is normal in structure. Pulmonic Valve [facility] [address] [place] [address] 2 D/M-MODE ECHOCARDIOGRAM Name: NIKKI DUNHAM Room: [address] IN M.R.#: [id number] Admission: 07/08/18 Attend Phys: Ariana Otero, Discharge: Date of : 31 Date of Service: 07/08/181644 Report #: [id number] Pulmonic valve is not well visualized. Great Vessels The aortic root is normal in size. IVC is normal in size and collapses >50% with inspiration. Pericardium There is no pericardial effusion. <Conclusion> LVEF is 50-55%. There is normal LV segmental wall motion. <ELECTRONICALLY SIGNED> By: Abdoulaye Hernandez MD, FACC 07/08/181644 44 44 Abdoulaye Hernandez MD, FACC /INF
--- NOTE | 2018-07-08 16:56 | CON ---
[address] [address] CONSULTATION Name: NIKKI DUNHAM Room: [address] IN .R.#: [id number] Admission: 07/08/18 Attend Phys: Ariana Otero MD Discharge: Date of : 33 Report #: [id number] THIS REPORT FOR: //name// CC: FAM physician/PCP Ariana Otero DATE OF SERVICE: 07/08/2018 ATTENDING PHYSICIAN: Dr. Otero. REASON FOR EVALUATION: Inflammatory pruritic type eruption, which is more confluent on erythrodermic, the other is more maculopapular in the setting of postoperative laparoscopic cholecystectomy roughly 12 days ago. HISTORY OF PRESENT ILLNESS: Chart reviewed, patient examined. This is an 82-year-old with history of diabetes mellitus, also previous known vasculopathy with CVA, who was admitted roughly 2 weeks ago with complaints of nausea, emesis and abdominal pain. Evaluation suggested to cholecystitis, underwent operative laparoscopic cholecystectomy, was found to have acute gangrenous cholecystitis, cholelithiasis. Postop course was fairly unremarkable. He was discharged. He did have fever and confusion as well. Evaluation suggested some sort of hypersensitivity type reaction. He was in moderate to marked distress as a result. Imaging did raise question of possible unexplained fluid collection with gas. This could be all postoperative in nature, although could not entirely exclude an abscess. He was started empirically on piperacillin and tazobactam. He is lucid. Denies any significant pulmonary-related complaints. ALLERGIES: None known. MEDICATIONS: Include enoxaparin, Zosyn, diphenhydramine, aspirin, finasteride, pantoprazole, p.r.n. analgesics and antiemetics. PAST MEDICAL HISTORY: Diabetes mellitus, previous stroke, recent cholecystectomy. SOCIAL HISTORY: Nonsmoker, no ethanol. FAMILY HISTORY: Noncontributory. REVIEW OF SYSTEMS: Otherwise unremarkable with exception noted above in the history of present illness. PHYSICAL EXAMINATION: GENERAL: He appears to be in [id number] distress secondary to the itching, slightly lethargic, appears mildly undernourished. VITAL SIGNS: Temperature 97.6, pulse 68, respirations 17, [place] [address] CONSULTATION Name: NIKKI DUNHAM Room: [address]#: [id number] Admission: 07/08/18 Attend Phys: Ariana Otero MD Discharge: Date of : 33 Report #: [id number] 109/50. SKIN: Warm, dry. Appears to be a hypersensitive reaction involving his torso, more confluent around the right lateral margin. It is band of several centimeters as maculopapular lesions are noted across the torso as well and seems to not involve the lower limbs or the head and neck. HEENT: Normocephalic. Eyes: Extraocular muscles intact. NECK: Supple. LUNGS: Diminished breath sounds. HEART: Regular. I do not appreciate a murmur. ABDOMEN: Mildly distended, soft. There are no peritoneal signs. EXTREMITIES: Distal lower extremities without edema. GENITOURINARY AND RECTAL: Deferred. LABORATORY DATA: PT of 10.5, INR 1.0. Lactic acid initially 2.1, repeat was 1.1. D-dimer elevated at 5.59. Electrolytes: Sodium 137, potassium 3.2, chloride 101, bicarbonate is 28, anion gap of 8, BUN and creatinine 18 and 1.4, glucose of 223. LFTs noted ALT of 76. AST of 91, alkaline phosphatase of 130, albumin 2.1, total protein 6.6. Estimated GFR 48. Urinalysis 0-5 white cells. CBC: White count of 12.1, H and H 11.3 and 34.3, platelets of 310. Differential showed neutrophilia with lymphocytopenia of absolute count of 100. Chest x-ray showed mild right basilar atelectasis. CTA chest PE protocol showed no signs of PE, small to moderate partially loculated right pleural effusion with some atelectasis. CT abdomen and pelvis noted the recent cholecystectomy at 3 x 5 cm collection with gas bubbles in the gallbladder fossa, question of some surgical material versus early abscess, trace amount of right subdiaphragmatic fluid collection. ASSESSMENT: Inflammatory (pruritic type eruption). I think this is certainly consistent with more of hypersensitivity. Review of the medication list, he had received doses of cefazolin. He had not been on penicillin type. Certainly could have a beta lactamase hypersensitivity. At this point, Zosyn was just started, he has been on only since admission, which is likely not the culprit. I do think it is more suspicious for a drug hypersensitivity than a postoperative infection at this point. We will treat empirically, deferred to Surgery about the findings on CT, in their estimation favor infection or just postoperative changes. He is not at this point toxic, just uncomfortable. We will monitor expectantly for signs of nosocomial related infectious complications. Add incentive spirometry. <ELECTRONICALLY SIGNED> By: Robbin Deleon MD 07/08/18 1656 1458 [id number] Deleon MD /nt
--- NOTE | 2018-07-08 17:51 | NUR ---
PT CURRENLTY RESTING IN BED- DRYWALL HANGER HELPER IN PLACE ORDERED, TRACING SR- IV TO RIGHT AC INTACT, IVF INFUSSING PRESICBED- GOOD PO INTAKE NOTED THIS SHIFT WITH MEALS- BENADRYL PRN THIS SHIFT FOR ITCHING/RASH- ID AND CARDIOLOGY CONSULTED AND HERE TO ASSESS THIS SHIFT- ECHO COMPLETED ORDERED WITH 50/55% LVEF NOTED- K+ CURRENLTY BEING REPLACED WITH REDRAW TO FOLLOW PER PROTOCOL THIS SHIFT- PT DENIES ANY C/O PAIN/DISCOMFORT AT THIS TIME- CALL LIGHT AND PERSONAL BELONGINGS WITH IN REACH- ALL NEEDS MET AT THIS TIME-WCTM
[2018-07-09 04:00] VITALS: BP 146/66
[2018-07-09 04:48] LABS: HEMATOCRIT 29.7 % (42.0-52.0); HEMOGLOBIN 9.9 gm/dL (14.0-18.0); MCH 30.2 pg (26.0-34.0); MCHC 33.4 g/dL (28.0-37.0); MCV 90.3 fL (80.0-100.0); RBC 3.29 mil/uL (4.50-6.00); RDW-CV 14.3 % (10.5-14.5); WBC 8.3 thou/uL (4.0-11.0)
--- NOTE | 2018-07-09 04:53 | NUR ---
ASSUMED PT CARE AT 1930. ASSESSMENT COMPLETED CHARTED. ABLE TO MAKE NEEDS KNOWN. PT RESTING IN BED AT THIS TIME. C/O PAIN BUT DOESNT WANT ANY MEDICATION FOR IT. UP WITH STANDBY ASSIST, PT IV KEEPS GOING OFF DUE TO PLACEMENT OF IV. WILL CONTINUE TO MONITOR.
[2018-07-09 05:08] LABS: ALBUMIN 1.8 g/dL (3.4-5.0); CALCIUM 7.9 mg/dL (8.5-10.1); CREATININE 1.1 mg/dL (0.6-1.3); MAGNESIUM 1.8 mg/dL (1.8-2.4); PHOSPHORUS* 2.6 mg/dL (2.5-4.9); POTASSIUM 3.9 mmol/L (3.5-5.1); TOTAL BILIRUBIN 0.3 mg/dL (<0.1-1.0); TOTAL PROTEIN 5.5 g/dL (6.4-8.2)
[2018-07-09 07:50] VITALS: BP 128/40
--- NOTE | 2018-07-09 08:39 | NUR ---
ASSUMED CARE OF PT THIS AM AROUND 0715- ELECTRONIC WARFARE TECHNICIAN IN PLACE ORDERED, TRACING SR- UPON ASSESSMENT PT NOTED TO BE RESTING IN BED, EYES CLOSED WITH CPAP IN PLACE- PT ARROUSABLE AND A&O X3-4 WITH FORGETFULLNESS- CONTINENT VS INCONTINENT OF BOWEL AND BLADDER- ASSIST X1 WITH TRANSFERS- LCTA, RESP EVEN AND UN-LABORED- VSS, O2 SAT 92% ON CPAP THIS AM- ABD SOFT/ROUND/NON-TENDER, BS X4 QUADS- LAST BM NOTED - IV NOTED TO RIGHT AC INTACT, IVF INFUSSING PRESCIBED- GOOD PO INTAKE NOTED THIS AM WITH BREAKFAST- BS MONITORED ORDERED- RASH NOTED TO ABD/BACK UPPER ARM, PRN BENADRYL GIVEN THIS AM- HOLDEN WILL IN PLACE TO RUQ WITH MINIMAL DRAINGE MAROONE COLORED NOTED- TRACE BLE EDEMA NOTED- PT DENIES ANY C/O PAIN/DISCOMFORT AT THIS TIME- CALL LIGHT AND PERSONAL BELONGINGS WITH IN REACH- HOURLY ROUNDS IN PLACE R/T SAFETY/NEEDS- ALL NEEDS MET AT THIS TIME-WCTM
[2018-07-09 11:45] VITALS: BP 136/56
--- NOTE | 2018-07-09 13:33 | CON ---
[address] [address] CONSULTATION Name: NIKKI DUNHAM Room: [address] IN .R.#: [id number] Admission: 07/08/18 Attend Phys: Ariana Otero MD Discharge: Date of : 33 Report #: [id number] THIS REPORT FOR: //name// CC: [facility] physician/PCP Ariana NEWTON DATE OF SERVICE: 07/08/2018 HISTORY OF PRESENT ILLNESS: The patient is an 82-year-old single white male who I was asked to see in the hospital today after he was noted to have a borderline elevated troponin. The patient has no previous history of heart disease. He stays fairly active despite his age. He has had no previous cardiac evaluation. The patient apparently underwent laparoscopic cholecystectomy last week here at [facility]. He was discharged 5 days ago. Apparently, yesterday, he was confused and vomited. He noticed a rash in his abdomen. His son brought him to the Emergency Room last night, and he was admitted. He denied a history of myocardial infarction, chest pain, shortness of breath. He has had a cough. No palpitations or syncope. PAST MEDICAL HISTORY: He has had previous hernia repair, thyroid cyst removed, cholecystectomy. He had a stroke years ago when he was fatigued. He has a history of hypertension, diabetes. PREVIOUS MEDICATIONS: Consisted of metformin, Amaryl, Diovan, Invokana, Proscar, aspirin. ALLERGIES: He has no known drug allergies. FAMILY HISTORY: His father had a heart attack. SOCIAL HISTORY: He is , lives in [place]. No smoking or alcohol abuse. REVIEW OF SYSTEMS: He has had no history of asthma, peptic ulcer disease, liver disease. He has had a kidney stone. No cancer, no psychiatric illness. PHYSICAL EXAMINATION: GENERAL: Revealed an elderly male, lying in bed. He appeared in no distress. VITAL SIGNS: He had a blood pressure of 110/60, pulse 60. He is afebrile. HEENT: He is anicteric. Conjunctivae pink. Mucous membranes moist. NECK: Veins nondistended. No carotid bruits. CHEST: Clear to auscultation. CARDIOVASCULAR: Regular rate and rhythm. ABDOMEN: Obese. There is a drain in the right upper quadrant. His abdomen is soft, [place] [address] CONSULTATION Name: NIKKI DUNHAM Room: [address]#: [id number] Admission: 07/08/18 Attend Phys: Ariana Otero MD Discharge: Date of : 33 Report #: [id number] EXTREMITIES: Had no edema. Dorsalis pedis pulse 2+ bilaterally. SKIN: Warm, dry. NEUROLOGIC: Nonfocal. LYMPH: No adenopathy. MUSCULOSKELETAL: No joint effusion. LABORATORY DATA: ECG on admission showed a sinus rhythm with a left bundle-branch block. His workup, he actually had an echocardiogram done 2 weeks ago that showed an ejection fraction of 60% with mild mitral regurgitation. He had x-rays done in the Emergency Room last night that included a CT scan of the abdomen and pelvis, which showed evidence of recent cholecystectomy, showed evidence of left inguinal hernia. He had a CT scan of the chest using a PE protocol which showed no pulmonary embolus, small right effusion. His chest x-ray yesterday showed atelectasis. His lab work yesterday included a sodium 139, creatinine 1.1, glucose 150. SGOT 86, SGPT 74. Albumin 1.9. Troponin was elevated at 1.54. BNP 795. White blood cell count 12.3, hemoglobin 10.2. IMPRESSION AND RECOMMENDATIONS: 1. Elevated troponin. No history of angina. Suspect related to recent surgery. 2. Confusion. 3. Hypertension. The patient has been on ARB. 4. Diabetes. 5. Recent cholecystectomy. 6. Rash. Recent and known. Apparently, there has been no new medications. <ELECTRONICALLY SIGNED> By: Abdoulaye Hernandez MD, [facility] 07/09/18 1333 1411 [id number] Hernandez MD, FACC /nt
[2018-07-09 15:52] VITALS: BP 146/66
--- NOTE | 2018-07-09 16:38 | NUR ---
PT CURRENTLY RESTING IN BED, SON AT SIDE VISITING- UPS DRIVER IN PLACE AND CONTINUED INDICATED, TRACING SR- IV ABT D/C'D THIS SHIFT PER R/T RASH, SOLU-MED X1 GIVEN PRESCIBED- GOOD PO INTAKE NOTED THIS SHIFT WITH MEALS- BENADRYL PRN GIVEN X2 THIS SHIFT AT 0814 AND 1403- PT REPORTS ITCHING TO BE BETTER THIS SHIFT- CARDIO RECOMMENDS OUT PT FOLLOW UP ONCE ACUTE FINDINGS RESOLVES AND SIGNS OFF THIS SHIFT- BS MONITORED ORDERED WITH SSI PRESCIBED- PT MAKES NEEDS KNOWN- ALL NEEDS MET AT THIS TIME-WCTM
[2018-07-09 20:00] VITALS: BP 129/62
[2018-07-10] VITALS: BP 89/59
[2018-07-10 04:00] VITALS: BP 126/44
[2018-07-10 04:47] LABS: HEMATOCRIT 31.9 % (42.0-52.0); HEMOGLOBIN 10.7 gm/dL (14.0-18.0); MCH 30.7 pg (26.0-34.0); MCHC 33.7 g/dL (28.0-37.0); MCV 91.2 fL (80.0-100.0); MPV 7.1 fl. (7.2-11.1); NUCLEATED RBCS 0 /100WBC; PLATELET COUNT* 357 thou/uL (150-400); RDW-CV 14.2 % (10.5-14.5); WBC 10.4 thou/uL (4.0-11.0)
[2018-07-10 05:01] LABS: CALCIUM 8.7 mg/dL (8.5-10.1); POTASSIUM 4.3 mmol/L (3.5-5.1); TOTAL BILIRUBIN 0.2 mg/dL (<0.1-1.0); TOTAL PROTEIN 6.3 g/dL (6.4-8.2)
--- NOTE | 2018-07-10 06:50 | NUR ---
ASSUMED PT CARE AT 1930. ASSESSMENT COMPLETED CHARTED. ABLE TO MAKE NEEDS KNOWN. PT RESTING IN BED ALL NIGHT WITH CPAP ON. NO C/O PAIN OR DISCOMFORT. HOLDEN DRAIN IN PLACE, MINIMAL DRAINAGE. WILL CONTINUE TO MONITOR.
[2018-07-10 07:30] LABS: ABSOLUTE LYMPHOCYTES 0.8 thou/uL (0.8-5.3); ABSOLUTE MONOCYTES 0.3 thou/uL (0.0-1.2); ABSOLUTE NEUTROPHILS 9.3 thou/uL (1.6-8.1); ANISOCYTOSIS 1+; GIANT PLATELETS OCCASIONAL; PLATELET ESTIMATE ADEQUATE; POIKILOCYTOSIS 1+
[2018-07-10 08:00] VITALS: BP 140/56
--- NOTE | 2018-07-10 09:58 | NUR ---
0710 ASSUMED CARE OF PATIENT. SEE DOCUMENTED ASSESSMENT. PATIENT STILL HAS RAHS ON THORAX AND BACK WITH ITCHING. WILL GREG FUENTES
--- NOTE | 2018-07-10 10:29 | NUR ---
If Pt discharges over the weekend, please fax orders to [facility] [phone].
[2018-07-10 11:50] VITALS: BP 142/69
[2018-07-10 15:54] VITALS: BP 148/69
--- NOTE | 2018-07-10 17:48 | NUR ---
PATIENT PROGRESSING TOWARDS GOALS. HAS BEEN OUT OF BED MOST OF DAY. APPETITE IMPROVED AND BOWELS HAVE MOVED. MEDICATED FOR PRURITIS X 2. BLOOD SUGAR HIGHER RECEIVED IV STEROID. SSI DOSING INCREASED. NO OUTPUT FROM HOLDEN DRAIN. ABDOMINAL INCISION SITES BENIGN.
[2018-07-10 20:00] VITALS: BP 128/48
[2018-07-11] VITALS: BP 128/47
[2018-07-11 04:00] VITALS: BP 112/67
--- NOTE | 2018-07-11 08:28 | NUR ---
pt resting in bed, appears alert o x 4, denies chest pain, OB, C/O generalized itching, has raskh over most of chest/trunk. HOLDEN deain x 1 , night shifts reports HOLDEN output 10 ml
[2018-07-11 08:39] VITALS: BP 147/63
--- NOTE | 2018-07-11 11:38 | NUR ---
HOLDEN DRAIN d/c PER ORDER
[2018-07-11 12:00] VITALS: BP 156/63
--- NOTE | 2018-07-11 15:12 | NUR ---
pt up in hallway with hand held assist of one . Was able to ambulate to 2 east and back to room, Amb approx 350 feet, stayed in NSR in 80s during ambulation, denied SOB , although appearred sl dyspneic, topwards end of walk , o2 sats remained mid 90s . denies feeling dizzy or lightheaded but stated his legs felt a "little wobbly" AT END OF WALK
[2018-07-11 16:00] VITALS: BP 103/64
--- NOTE | 2018-07-11 17:29 | NUR ---
pt progressing towards goals , remains alert o x 4, denies chest pain, SOB, pain, Still has generalized rash to most of chest/trunk/back. He states belives hydrocortisone cream helping, Up in chair today for all meals amb in hallway earleir > 350 feet, on SS insulim, BS 194,255, 222, sterpoids being tapered , HOLDEN drain iam d/c , tre signed off
[2018-07-11 20:00] VITALS: BP 151/70
[2018-07-12] VITALS: BP 124/47
--- NOTE | 2018-07-12 00:17 | NUR ---
ASSUMED PT CARE @ 1930. PT A+OX4. DENIES PAIN. BENADRYL AND HYDROCORTISONE CREAM EFFECTIVE FOR ITCHING AND PT WAS ABLE TO FALL ASLEEP. CALL LIGHT IN REACH. HOURLY ROUNDING FOR SAFETY.
--- NOTE | 2018-07-12 00:36 | NUR ---
HOLDEN DRAIN WAS DISCONTINUED ON DAY SHIFT. GAUZE W TRANSPARENT DRESSING INTACT. SCANT BROWN DRAINAGE. NO S+S OF INFECTION AT SITE.
[2018-07-12 04:00] VITALS: BP 149/66
[2018-07-12 05:13] LABS: HEMATOCRIT 34.9 % (42.0-52.0); HEMOGLOBIN 11.5 gm/dL (14.0-18.0); MCH 29.9 pg (26.0-34.0); MCV 90.8 fL (80.0-100.0); MPV 7.7 fl. (7.2-11.1); RBC 3.85 mil/uL (4.50-6.00); RDW-CV 14.4 % (10.5-14.5); WBC 10.8 thou/uL (4.0-11.0)
[2018-07-12 05:21] LABS: CALCIUM 8.3 mg/dL (8.5-10.1); CREATININE 0.9 mg/dL (0.6-1.3); POTASSIUM 4.2 mmol/L (3.5-5.1)
[2018-07-12 07:50] VITALS: BP 163/76
[2018-07-12 12:00] VITALS: BP 149/73
[2018-07-12] MEDS ORDERED: BANOPHEN25 MG PO (12:18)
[2018-07-12] MEDS ORDERED: HYDROCORTISONE30 G9 TOP (12:19)
[2018-07-12 12:57] VITALS: BP 149/73
== END 2018-07-12 15:00 | disposition home health service (06) | DRG 372 ==
LOC: M.ERS 22:54 → M.2W 07-08 01:57 → M.TBA-ER 07-08 01:57 → M.2W 07-08 02:52
PROVIDERS: Emergency Medicine; Family Medicine; Internal Medicine; Nurse Practitioner Family; ADMIT Internal Medicine
DX: K65.1 Peritoneal abscess (principal); R65.10 Systemic inflammatory response syndrome (SIRS) of non-infectious origin without acute organ dysfunction; N18.9 Chronic kidney disease, unspecified; E11.22 Type 2 diabetes mellitus with diabetic chronic kidney disease; N40.0 Benign prostatic hyperplasia without lower urinary tract symptoms; E87.6 Hypokalemia; R74.0 Nonspecific elevation of levels of transaminase and lactic acid dehydrogenase [LDH]; I12.9 Hypertensive chronic kidney disease with stage 1 through stage 4 chronic kidney disease, or unspecified chronic kidney disease; L27.0 Generalized skin eruption due to drugs and medicaments taken internally; Z88.0 Allergy status to penicillin; Z86.73 Personal history of transient ischemic attack (TIA), and cerebral infarction without residual deficits; Z90.49 Acquired absence of other specified parts of digestive tract; Z82.49 Family history of ischemic heart disease and other diseases of the circulatory system; Z79.82 Long term (current) use of aspirin; Z79.899 Other long term (current) drug therapy; Z88.8 Allergy status to other drugs, medicaments and biological substances

== ENCOUNTER 2019-12-15 05:04 | Inpatient (IN) | payer MEDICARE ==
[~2019-12-15] VITALS: Ht 167.6 cm; Wt 92.1 kg
[~2019-12-15 05:04] MED LIST changes: +BANOPHEN25 MG PO; +HYDROCORTISONE30 G9 TOP
[2019-12-15 05:06] VITALS: BP 127/48
[2019-12-15 05:52] LABS: HEMATOCRIT 42.8 % (42.0-52.0); HEMOGLOBIN 14.7 gm/dL (14.0-18.0); MCH 31.1 pg (26.0-34.0); MCHC 34.5 g/dL (28.0-37.0); MCV 90.2 fL (80.0-100.0); MPV 7.5 fl. (7.2-11.1); NUCLEATED RBCS 0 /100WBC; PLATELET COUNT* 189 thou/uL (150-400); RBC 4.74 mil/uL (4.50-6.00); RDW-CV 13.5 % (10.5-14.5); WBC 18.4 thou/uL (4.0-11.0)
[2019-12-15 06:02] LABS: CREATININE 1.3 mg/dL (0.6-1.3); POTASSIUM 3.8 mmol/L (3.5-5.1)
[2019-12-15 06:06] LABS: PROTIME 10.6 Seconds (9.20-11.50)
[2019-12-15 06:17] LABS: ALBUMIN 3.3 g/dL (3.4-5.0); MAGNESIUM 1.6 mg/dL (1.8-2.4); TOTAL BILIRUBIN 0.6 mg/dL (<0.1-1.0); TOTAL PROTEIN 7.1 g/dL (6.4-8.2)
[2019-12-15 07:15] LABS: ABSOLUTE LYMPHOCYTES 1.1 thou/uL (0.8-5.3); ABSOLUTE MONOCYTES 0.7 thou/uL (0.0-1.2); ABSOLUTE NEUTROPHILS 16.6 thou/uL (1.6-8.1); ANISOCYTOSIS 1+; PLATELET ESTIMATE ADEQUATE; POIKILOCYTOSIS 1+
[2019-12-15 08:24] LABS: URINE BILIRUBIN NEGATIVE (Negative); URINE BLOOD NEGATIVE (Negative); URINE CLARITY CLEAR; URINE COLOR YELLOW; URINE GLUCOSE-RANDOM 1+ (Negative); URINE KETONES NEGATIVE (Negative); URINE LEUKOCYTES-REFLEX NEGATIVE (Negative); URINE NITRITE-REFLEX NEGATIVE (Negative); URINE PROTEIN NEGATIVE (Negative); URINE SPECIFIC GRAVITY 1.025 (1.005-1.030); URINE UROBILINOGEN 0.2 E.U./dl (0.2-1.0)
[2019-12-15 10:33] VITALS: BP 118/47
[2019-12-15 11:15] VITALS: BP 105/37
[2019-12-15 11:23] VITALS: BP 100/45
--- NOTE | 2019-12-15 11:23 | EKG ---
[place] [address] ELECTROCARDIOGRAM REPORT Name: NIKKI DUNHAM Room: [address] ADM IN .R.#: [id number] Admission: 12/15/19 Attend Phys: Prince Epstein, Discharge: Date of : 31 Date of Service: 12/15/19 0551 Report #: [id number] THIS REPORT FOR: //name// [facility] ED Test Date: 2019-12-15 Test Time: 05:51:43 Pat Name: NIKKI DUNHAM Department: Room: [facility] Gender: M Cissp: : 1935 Requested By: Mari Hughes Order Number: [id number] MD: Abdoulaye Hernandez Measurements Intervals [place] Rate: 95 P: 38 OR: 191 QRS: 3 QRSD: 110 T: 55 QT: 353 QTc: 444 Interpretive Statements Sinus rhythm Consider anterior infarct Compared to ECG 07/08/2018 00:30:58 No significant changes Electronically Signed On 12-15-2019 11:23:16 CDT by Abdoulaye Hernandez [email or web address] <ELECTRONICALLY SIGNED> By: Abdoulaye Hernandez MD, [facility] 12/15/19 1123 [id number] 0551 Abdoulaye Hernandez MD, [facility] /EPI
[2019-12-15 16:00] VITALS: BP 136/50
[2019-12-15 20:15] VITALS: BP 136/59
[2019-12-16 03:50] LABS: HEMATOCRIT 36.4 % (42.0-52.0); HEMOGLOBIN 12.8 gm/dL (14.0-18.0); MCH 31.3 pg (26.0-34.0); MCHC 35.2 g/dL (28.0-37.0); MCV 88.9 fL (80.0-100.0); MPV 7.4 fl. (7.2-11.1); RBC 4.1 mil/uL (4.50-6.00); RDW-CV 13.4 % (10.5-14.5); WBC 14.1 thou/uL (4.0-11.0)
[2019-12-16 04:00] VITALS: BP 119/51
[2019-12-16 04:02] LABS: CALCIUM 8.4 mg/dL (8.5-10.1); MAGNESIUM 1.8 mg/dL (1.8-2.4); POTASSIUM 3.8 mmol/L (3.5-5.1)
[2019-12-16 08:00] VITALS: BP 125/60
[2019-12-16 20:00] VITALS: BP 134/57
[2019-12-17] MEDS ORDERED: VITAMIN B122500 MCG PO (07:58)
[2019-12-17] MEDS ORDERED: AZITHROMYCIN 2250 MG PO (07:58)
[2019-12-17] MEDS ORDERED: CEFDINIR300 MG PO (07:58)
[2019-12-17 08:00] VITALS: BP 135/87
[2019-12-17] MEDS ORDERED: VITAMIN D325 MCG PO (08:01)
[2019-12-17 10:55] VITALS: BP 135/87
== END 2019-12-17 11:46 | disposition home or self-care (01) | DRG 871 ==
LOC: M.ERS 05:04 → M.TBA-ER 09:05 → M.ORTHSURG 10:32
PROVIDERS: Emergency Medicine; ADMIT Internal Medicine; ATTEND Internal Medicine
DX: A41.9 Sepsis, unspecified organism (principal); G92 Toxic encephalopathy; J15.6 Pneumonia due to other Gram-negative bacteria; E44.1 Mild protein-calorie malnutrition; Z20.828 Contact with and (suspected) exposure to other viral communicable diseases; N40.0 Benign prostatic hyperplasia without lower urinary tract symptoms; N18.2 Chronic kidney disease, stage 2 (mild); Z66 Do not resuscitate; G47.33 Obstructive sleep apnea (adult) (pediatric); E55.9 Vitamin D deficiency, unspecified; E53.8 Deficiency of other specified B group vitamins; I95.2 Hypotension due to drugs; E11.22 Type 2 diabetes mellitus with diabetic chronic kidney disease; Z90.49 Acquired absence of other specified parts of digestive tract; Z86.73 Personal history of transient ischemic attack (TIA), and cerebral infarction without residual deficits; Z88.8 Allergy status to other drugs, medicaments and biological substances; Z88.0 Allergy status to penicillin; Z79.82 Long term (current) use of aspirin; Z79.899 Other long term (current) drug therapy; Z68.32 Body mass index [BMI] 32.0-32.9, adult

== ENCOUNTER 2021-02-20 20:35 | Inpatient (IN) | payer MEDICARE ==
[~2021-02-20] VITALS: Ht 167.6 cm; Wt 98.4 kg
[~2021-02-20 20:35] MED LIST changes: +AZITHROMYCIN 2250 MG PO; +CEFDINIR300 MG PO; +VITAMIN B122500 MCG PO; +VITAMIN D325 MCG PO
[2021-02-20 20:44] VITALS: BP 144/58
[2021-02-20] MEDS ORDERED: TRULICITY0.75 MG/0. (20:51)
[2021-02-20 21:49] LABS: HEMATOCRIT 38.6 % (42.0-52.0); HEMOGLOBIN 13.3 gm/dL (14.0-18.0); MCH 30.9 pg (26.0-34.0); MCHC 34.5 g/dL (28.0-37.0); MCV 89.4 fL (80.0-100.0); MPV 7.4 fl. (7.2-11.1); NUCLEATED RBCS 0 /100WBC; PLATELET COUNT* 175 thou/uL (150-400); RBC 4.32 mil/uL (4.50-6.00); RDW-CV 13.7 % (10.5-14.5); WBC 17.1 thou/uL (4.0-11.0)
[2021-02-20 21:53] LABS: BE -1.2 mmol/L (-2 to +3); PCO2 39.2 mmHg (35.0-45.0); pH 7.394 (7.340-7.450)
[2021-02-20 21:54] LABS: CALCIUM 8.9 mg/dL (8.5-10.1); CREATININE 1.3 mg/dL (0.6-1.3); POTASSIUM 4.1 mmol/L (3.5-5.1)
[2021-02-20 21:58] LABS: ALBUMIN 3.5 g/dL (3.4-5.0); MAGNESIUM 1.4 mg/dL (1.8-2.4); TOTAL BILIRUBIN 0.7 mg/dL (<0.1-1.0)
[2021-02-20 21:58] LABS: PO2 45.5 mmHg (75.0-100.0)
[2021-02-20 22:31] LABS: ABSOLUTE LYMPHOCYTES 0.9 thou/uL (0.8-5.3); ABSOLUTE MONOCYTES 0.7 thou/uL (0.0-1.2); ABSOLUTE NEUTROPHILS 15.6 thou/uL (1.6-8.1); PLATELET ESTIMATE ADEQUATE
[2021-02-20 23:37] LABS: APTT 26.6 Seconds (25.0-31.3); PROTIME 10.7 Seconds (9.20-11.50)
[2021-02-21 01:08] LABS: URINE BILIRUBIN NEGATIVE (Negative); URINE BLOOD NEGATIVE (Negative); URINE CLARITY CLEAR; URINE COLOR YELLOW; URINE GLUCOSE-RANDOM 2+ (Negative); URINE KETONES NEGATIVE (Negative); URINE LEUKOCYTES-REFLEX NEGATIVE (Negative); URINE NITRITE-REFLEX NEGATIVE (Negative); URINE PROTEIN NEGATIVE (Negative); URINE UROBILINOGEN 0.2 E.U./dl (0.2-1.0)
[2021-02-21 02:15] VITALS: BP 144/65
--- NOTE | 2021-02-21 07:47 | NUR ---
RECIEVED PT FROM ED UPON ARRIVAL TO UNIT PT ALERT TO SELF AND PLACE , PORIENTED TO ROOM SON AT BEDSIDE, DATA BASE COMPLETED, ASSESSMENT CHARTED, IV FLUIDS STARTED, DISCUSSED PLAN OF CARE WITH SON AND PT. PT PLACED ON CARDIAC MONTIOR.
[2021-02-21 09:23] VITALS: BP 101/59
[2021-02-21 16:00] VITALS: BP 132/55
[2021-02-21 19:30] VITALS: BP 119/76
[2021-02-21 21:51] LABS: BE -0.8 mmol/L (-2 to +3); PCO2 35.2 mmHg (35.0-45.0); PO2 74.1 mmHg (75.0-100.0); pH 7.432 (7.340-7.450)
[2021-02-22 00:09] VITALS: BP 122/80
[2021-02-22 02:06] LABS: GLYCOHEMOGLOBIN (HGB A1C) 9.1 % (4.8-5.6)
[2021-02-22 04:02] VITALS: BP 113/56
[2021-02-22 04:28] LABS: ABSOLUTE EOSINOPHILS 0.2 thou/uL (0.0-0.7); ABSOLUTE LYMPHOCYTES 1.5 thou/uL (0.8-5.3); ABSOLUTE MONOCYTES 0.9 thou/uL (0.0-1.2); ABSOLUTE NEUTROPHILS 7.6 thou/uL (1.6-8.1); BASOPHILS 0.2 %; EOSINOPHILS 2.1 %; LYMPHOCYTES 14.8 %; MCH 30.9 pg (26.0-34.0); MCHC 34.3 g/dL (28.0-37.0); MCV 90.2 fL (80.0-100.0); MONOCYTES 8.6 %; MPV 7.7 fl. (7.2-11.1); NUCLEATED RBCS 0 /100WBC; PLATELET COUNT* 161 thou/uL (150-400); POLYS 74.3 %; RBC 3.88 mil/uL (4.50-6.00); RDW-CV 13.5 % (10.5-14.5); WBC 10.3 thou/uL (4.0-11.0)
[2021-02-22 05:11] LABS: ALBUMIN 2.8 g/dL (3.4-5.0); CALCIUM 8.4 mg/dL (8.5-10.1); CREATININE 1.1 mg/dL (0.6-1.3); POTASSIUM 3.7 mmol/L (3.5-5.1); TOTAL BILIRUBIN 0.5 mg/dL (<0.1-1.0); TOTAL PROTEIN 6.3 g/dL (6.4-8.2)
[2021-02-22 08:58] VITALS: BP 139/61
--- NOTE | 2021-02-22 10:23 | NUR ---
CM ASSESSEMENT: PT A&O AND ABLE TO ANSWER ORIENTATION QUESTIONS APPROPRIATELY. PT RESIDES AT HOME WITH HIS SON AND FAMILY. PT NORMALLY INDEPENDENT WITH ADL'S. PT USES WALKER OR CANE OCCATIONALLY FOR MOBIITY. PT HAS 0 HX OF HH OR SNF. PT MAY BENEFIT FROM HH AT D/C. CM WILL REMAIN AVAILABLE TO ASSIST AND FOLLOW NEEDED.
[2021-02-22 11:50] VITALS: BP 150/84
[2021-02-22 16:07] VITALS: BP 127/46
[2021-02-22 16:59] VITALS: BP 127/46
--- NOTE | 2021-02-22 18:06 | NUR ---
Reviewed discharge teaching with patient and pt's son; verbalized understanding. IV and it compliance manager dc'd. Discharged from unit per WC.
== END 2021-02-22 18:00 | disposition home or self-care (01) | DRG 871 ==
LOC: M.ERS 20:35 → M.TBA-ER 23:56 → M.2W 23:56
PROVIDERS: Internal Medicine; Personal Emergency Response Attendant; ADMIT Internal Medicine; ATTEND Internal Medicine
DX: A41.9 Sepsis, unspecified organism (principal); G93.41 Metabolic encephalopathy; Z20.822 Contact with and (suspected) exposure to COVID-19; E11.65 Type 2 diabetes mellitus with hyperglycemia; Z86.73 Personal history of transient ischemic attack (TIA), and cerebral infarction without residual deficits; Z90.49 Acquired absence of other specified parts of digestive tract; Z85.22 Personal history of malignant neoplasm of nasal cavities, middle ear, and accessory sinuses; Z88.0 Allergy status to penicillin; Z88.8 Allergy status to other drugs, medicaments and biological substances; Z79.82 Long term (current) use of aspirin; Z79.899 Other long term (current) drug therapy